=== PATIENT | female | born 1985 | race African-American/Black ===

== ENCOUNTER → 2016-11-28 | Outpatient (CLI) | payer OTHER ==
[~2016-11-28] MED LIST: ACET50TA PO; DOCU10CA PO; IBUP80TA PO; MOM30SS PO; PERCOCET PO; ROXI15TA12 PO; VITAPRTA PO
--- NOTE | 2016-11-28 22:31 | REP ---
PELVIC ULTRASOUND: HISTORY: Pelvic and peroneal pain. Transvesical and transvaginal imaging was obtained. COMPARISON: None. Previous CT examination obtained 10/24/16 showed a 5.5 x 4.8 x 5 cm sized left hemipelvic cyst which was suspected of being adnexal origin. The uterus measures 10.3 x 4.1 x 5.7 cm. The parenchymal echo pattern is slightly heterogenous but there are no measurable masses. The endometrial echo complex is smooth and unremarkable appearing measuring 5.4 mm in thickness. The right ovary measures 6.6 x 6.5 x 5.6 cm. Within the right ovary there is a 5.5 x 5.8 x 5.2 cm sized anechoic structure which exhibits posterior wall enhancement and increased through transmission and is free of septations or papillary projections. The right ovarian RI is 0.51. Left ovary measures 3.4 x 1.9 x 2.3 cm and is within normal limits with an RI of 0.55. There is a small amount of free fluid in the cul-de-sac probably physiologic. Urinary bladder measures 8 x 14 x 10 cm. IMPRESSION: Large but simple right ovarian cyst as described above. Signed by Oneil Hawk DO 12/02/2016 10:19 A
== END | disposition home or self-care (01) ==
LOC: M SMT 14:36
PROVIDERS: ATTEND Specialist
DX: R10.2 Pelvic and perineal pain (principal); N83.291 Other ovarian cyst, right side

== ENCOUNTER → 2016-12-30 | Outpatient (CLI) | payer OTHER ==
--- NOTE | 2016-12-31 04:40 | REP ---
Clinical: Follow-up right ovarian cyst . Comparison: 11/28/2016. Technique: Transabdominal pelvic ultrasound followed by transvaginal examination for better evaluation of the endometrium and adnexa with color Doppler evaluation of the ovaries. Findings: Bladder is unremarkable and measures 14.5 x 9.2 x 9.2 cm . Normal anteverted uterus measures 7.9 x 4.0 x 5.2 cm . The endometrial complex measures 2 mm thickness. No discrete uterine or endometrial abnormalities are appreciated. Bilateral ovaries are normal in appearance and vascularity without evidence for torsion. Right ovary measures 3.6 x 1.8 x 2.1 cm and the previously noted cyst has resolved ; R I = 0.55 . Left ovary measures 3.7 x 2.0 x 3.3 cm ; R I = 0.43 . No pelvic fluid or adnexal mass lesion . Impression: 1. normal pelvic ultrasound. Previous right ovarian cyst resolved. Signed by Amado Banda MD 12/31/2016 04:31 A
== END | disposition home or self-care (01) ==
LOC: M RAD 17:23
PROVIDERS: ATTEND Specialist
DX: N83.201 Unspecified ovarian cyst, right side (principal)